=== PATIENT | female | born 1965 | race Caucasian/White ===

== ENCOUNTER 2023-08-13 18:37 | Emergency (ER) | payer SELFPAY ==
[2023-08-13 18:55] VITALS: BP 166/92; PULSE 70; RESP 16; TEMP 36.1; O2SAT 100
[2023-08-13 19:13] VITALS: BP 129/92; PULSE 70; RESP 16; TEMP 36.4; O2SAT 99
--- NOTE | 2023-08-13 19:38 | ED.GENADULT ---
HPI - General Adult General Chief complaint: Eye Problems Stated complaint: left eye pain, swelling, tearing a lot Time Seen by Provider: 08/13/23 19:10 History of Present Illness HPI narrative: This is a 58-year-old female presenting with left eye irritation. She was using a contact contact lens blocker on her contact lenses but did not rinse them before putting them in her eye. She has had progressively worse redness and irritation of the left eye she had tried flushing it out at home. She called her lieutenant/deputy who RX'd her steroid drops. She is concerned she has a corneal abrasion. Related Data Allergies Allergy/AdvReac Type Severity Reaction Status Date / Time butorphanol Allergy Unknown Anaphylactic Verified 08/13/23 20:17 Shock Exam Narrative: APPEARANCE: No apparent distress. Head: atraumatic. NOSE: Atraumatic NECK: Trachea midline RESPIRATORY: No increased rate of breathing CARDIOVASCULAR: RRR, ABDOMINAL: Non-distended MUSCULOSKELETAl: No obvious deformities NEURO: Alert. Moving 4/4 extremities SKIN:: Warm, dry. Normal color PSYCHIATRIC: Normal affect Eye exam: conjunctival injection of the left eye. Fluorescein stain negative for abrasion. No Mireya sign. No foreign bodies noted. IOP is 12 bilaterally. Course Vital Signs Vital signs: Vital Signs Temperature 97.0 F L 08/13/23 18:55 Pulse Rate 70 08/13/23 18:55 Respiratory Rate 16 08/13/23 18:55 Blood Pressure 166/92 H 08/13/23 18:55 Pulse Oximetry 100 08/13/23 18:55 Oxygen Delivery Room Air 08/13/23 18:55 Temperature 97.6 F 08/13/23 19:13 Pulse Rate 70 08/13/23 19:13 Respiratory Rate 16 08/13/23 19:13 Blood Pressure 129/92 H 08/13/23 19:13 Pulse Oximetry 99 08/13/23 19:13 Oxygen Delivery Room Air 08/13/23 19:13 Medical Decision Making MDM Narrative Medical decision making narrative: -Course: 58-year-old female presenting with left eye irritation after exposing him to a contact contact lens blocker. Eye exam did not show any corneal abrasion. Suspect chemical conjunctivitis. Eye was irrigated saline. Patient discharged with antibiotic eyedrops and pain control. Ophthalmology follow-up. 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 -Interventions: 1 L normal saline irrigation via Hernan lens -Shared decision making / Disposition: discharged -RX Ocuflox, oxycodone Vital Signs Vital Signs: Vital Signs Temperature 97.0 F L 08/13/23 18:55 Pulse Rate 70 08/13/23 18:55 Respiratory Rate 16 08/13/23 18:55 Blood Pressure 166/92 H 08/13/23 18:55 Pulse Oximetry 100 08/13/23 18:55 Oxygen Delivery Room Air 08/13/23 18:55 Temperature 97.6 F 08/13/23 19:13 Pulse Rate 70 08/13/23 19:13 Respiratory Rate 16 08/13/23 19:13 Blood Pressure 129/92 H 08/13/23 19:13 Pulse Oximetry 99 08/13/23 19:13 Oxygen Delivery Room Air 08/13/23 19:13 Discharge Plan Discharge Clinical Impression: Acute chemical conjunctivitis Patient Disposition: Home, Self-Care Condition: Stable Instructions: Antibiotic Form, Conjunctivitis (ED) Additional Instructions: Please take NSAIDs for pain control. Use oxycodone for breakthrough pain. Use the drops prescribed by the lieutenant/deputy and the antibiotic eyedrops. Please follow-up closely with Ophthalmology. Prescriptions: New oxycodone 5 mg tablet 5 mg PO Q4H PRN (Reason: pain) Qty: 10 0RF ofloxacin [Ocuflox] 0.3 % drops See Rx Instructions .ROUTE .COMPLEX Qty: 5 0RF Rx Instructions: put 1-2 drps into affected eye(s) every 2-4 h x 2 days, then 1-2 drps 4 times/day days 3-7 Follow-up/Referrals: PHYSICIAN NOT ON STAFF,NONSTAFF [Primary Care Provider] -
[2023-08-13] MEDS: NACL 0.9% IRRIG BAG 1,000 ML 999 ML IRRIGATION (20:07)
[2023-08-13] MEDS: oxyCODONE HCL (*CRX) 5 MG TAB IR PO (20:42)
== END 2023-08-13 20:46 | disposition home or self-care (01) ==
LOC: ANHED 20:38
PROVIDERS: Emergency Provider Emergency Medicine
DX: T49.5X1A Poisoning by ophthalmological drugs and preparations, accidental (unintentional), initial encounter (principal); H10.212 Acute toxic conjunctivitis, left eye
CPT/HCPCS: 99283; A9270; J7030